=== PATIENT | female | born 2000 | race Caucasian/White ===

== ENCOUNTER 2022-03-19 23:36 | Emergency (ER) | payer SELFPAY ==
[~2022-03-19] VITALS: Ht 170.2 cm; Wt 95.3 kg
[2022-03-19 23:38] VITALS: BP_SYST 109
[2022-03-20] MEDS ORDERED: AMOX-423 PO (00:13)
[2022-03-20] MEDS ORDERED: AMOXICILLIN/CLAVULANATE POTASSIUM 875 MG TABLET PO ONE (00:15)
[2022-03-20] MEDS ORDERED: DIPH-TET-PERTUS Vaccine 0.5 ML VIAL (ADACEL) I.M. ONE (00:15)
[2022-03-20] MEDS ORDERED: ACETAMINOPHEN 500 MG TABLET PO ONE (00:15)
[2022-03-20 01:27] VITALS: BP_SYST 109
== END 2022-03-20 01:27 | disposition home or self-care (01) ==
LOC: SED 23:36
DX: S51.832A Puncture wound without foreign body of left forearm, initial encounter (principal); W54.0XXA Bitten by dog, initial encounter; Y93.89 Activity, other specified; Y92.89 Other specified places as the place of occurrence of the external cause; Y99.8 Other external cause status
CPT/HCPCS: 90715; 99283